=== PATIENT | male | born 1945 | race Caucasian/White ===

== ENCOUNTER 2018-12-14 12:20 | Inpatient (IN) ==
[2018-12-14] MEDS ORDERED: NS 1,000 ML IV ONE (12:49)
[2018-12-14] MEDS ORDERED: CORDARONE IV ONE (12:49)
[2018-12-14] MEDS ORDERED: ASPIRIN PO ONE (12:55)
[2018-12-14] MEDS ORDERED: ADENOCARD IV ONE ×2 (12:57→13:01)
[2018-12-14] MEDS ORDERED: ADENOCARD ONE ×2 (12:57→13:03)
[2018-12-14] MEDS ORDERED: LOPRESSOR IV ONE ×2 (13:02→13:07)
[2018-12-14] MEDS ORDERED: LOPRESSOR ONE (13:03)
[2018-12-14] MEDS ORDERED: CORDARONE 360 MG/D5W 360 MG/200 ML IV.SOLN IV ONE ×2 (13:06→13:09)
[2018-12-14 13:19] LABS: INR 1.1; PROTIME 14.4 Seconds (11.0-16.0)
[2018-12-14 13:20] LABS: PTT 33.5 Seconds (22.3-41.8)
[2018-12-14 13:29] LABS: BASO% 0.7 % (0.0-0.8); EOS# 0.21 X1000 (0.0-0.7); EOS% 1.4 % (0.0-10.0); HEMATOCRIT 45.1 % (42.0-52.0); HEMOGLOBIN 15.4 g/dL (14.0-18.0); MCH 30.7 PG (27-31); MCHC 34.1 g/dL (33-37); MCV 89.8 FL (81-99); MONO# 1.35 X1000 (0.11-0.59); MONO% 9.3 % (1.7-9.3); MPV 8.9 FL (7.4-10.4); NEUT# 7.82 X1000 (1.4-6.5); NEUT% 53.6 % (42.2-75.2); PLT 363 X1000 (130-400); RBC 5.02 XMIL (4.7-6.1); RDW 13.2 % (11.5-14.5); WBC 14.58 X1000 (4.8-10.8)
--- NOTE | 2018-12-14 13:36 | Diag Imaging Result Doc PS360 ---
EXAM: CHEST-PORTABLE HISTORY: cp TECHNIQUE: Portable chest COMPARISON: 05/10/2016 FINDINGS: The lungs are well expanded. The heart is not enlarged. The vessels are not distended. There is scarring in the lower lungs, right greater than left. There are no infiltrates. No effusion identified. Right-sided pleural thickening. IMPRESSION: Basilar scarring Electronically signed by Antonio Lo 12/14/2018 1:33 PM
[2018-12-14 13:50] LABS: AGAP 14; ALB/GLOB RATIO 1.4; ALBUMIN 3.8 g/dL (3.5-5.0); ALKALINE PHOSPHATASE 79 U/L (32-122); BUN 17 mg/dL (8-22); CALCIUM 9.1 mg/dL (8.8-10.2); CHLORIDE 99 mmol/L (98-107); CK PROFILE 37 U/L (24-204); COSMO 279; CREATININE 1.1 mg/dL (0.7-1.2); ESTIMATED GFR > 60; GLUCOSE 122 mg/dL (70-104); GOT 16 U/L (10-34); GPT 19 U/L (10-44); POTASSIUM 4.5 mmol/L (3.5-5.1); SODIUM 138 mmol/L (136-145); TCO2 25 mmol/L (25-35); TOTAL BILIRUBIN 0.53 mg/dL (0.20-1.00); TOTAL PROTEIN 6.6 g/dL (6.3-8.3)
--- NOTE | 2018-12-14 14:05 | EKG Report ---
Test Performed on : 12/14/2018 12:43:51 PM Test Reason : cp Blood Pressure : / mmHG Vent. Rate : 171 BPM Atrial Rate : 174 BPM P-R Int : 000 ms QRS Dur : 122 ms QT Int : 306 ms P-R-T Axes : 000 -12 149 degrees QTc Int : 516 ms Wide QRS tachycardia. Left bundle branch block Abnormal ECG When compared with ECG of 11-AUG-2015 07:12, Wide QRS tachycardia. has replaced Sinus rhythm. Vent. rate has increased BY 109 BPM Unconfirmed Result
--- NOTE | 2018-12-14 14:13 | EKG Report ---
Test Performed on : 12/14/2018 12:56:18 PM Test Reason : cp Blood Pressure : / mmHG Vent. Rate : 169 BPM Atrial Rate : 163 BPM P-R Int : 000 ms QRS Dur : 132 ms QT Int : 310 ms P-R-T Axes : 000 -15 141 degrees QTc Int : 519 ms Wide QRS tachycardia. Left bundle branch block Abnormal ECG When compared with ECG of 14-DEC-2018 12:43, (Unconfirmed) No significant change was found Unconfirmed Result
--- NOTE | 2018-12-14 14:16 | EKG Report ---
Test Performed on : 12/14/2018 12:59:53 PM Test Reason : cp Blood Pressure : / mmHG Vent. Rate : 080 BPM Atrial Rate : 080 BPM P-R Int : 158 ms QRS Dur : 136 ms QT Int : 388 ms P-R-T Axes : 065 -09 146 degrees QTc Int : 447 ms Normal sinus rhythm. Left bundle branch block Abnormal ECG When compared with ECG of 14-DEC-2018 12:59, (Unconfirmed) No significant change was found Unconfirmed Result
[2018-12-14 14:18] LABS: T4 6.53 ug/dL (4.60-12.00); TSH 4.56 uIUmL (0.27-4.20)
--- NOTE | 2018-12-14 14:19 | EKG Report ---
Test Performed on : 12/14/2018 1:00:35 PM Test Reason : cp Blood Pressure : / mmHG Vent. Rate : 174 BPM Atrial Rate : 174 BPM P-R Int : 112 ms QRS Dur : 112 ms QT Int : 246 ms P-R-T Axes : 052 -25 183 degrees QTc Int : 418 ms Sinus tachycardia. with premature ventricular complexes. or fusion complexes Anterior infarct , age undetermined Marked ST abnormality, possible inferolateral subendocardial injury Abnormal ECG When compared with ECG of 14-DEC-2018 12:59, (Unconfirmed) fusion complexes are now present premature ventricular complexes. are now present Vent. rate has increased BY 94 BPM Left bundle branch block is no longer present Anterior infarct is now present Unconfirmed Result
--- NOTE | 2018-12-14 14:22 | EKG Report ---
Test Performed on : 12/14/2018 1:03:29 PM Test Reason : cp Blood Pressure : / mmHG Vent. Rate : 169 BPM Atrial Rate : 170 BPM P-R Int : 000 ms QRS Dur : 116 ms QT Int : 248 ms P-R-T Axes : 000 -17 175 degrees QTc Int : 415 ms Supraventricular tachycardia. Anteroseptal infarct (cited on or before 14-DEC-2018) Marked ST abnormality, possible inferolateral subendocardial injury Abnormal ECG When compared with ECG of 14-DEC-2018 13:00, (Unconfirmed) fusion complexes are no longer present premature ventricular complexes. are no longer present Serial changes of Anteroseptal infarct present Unconfirmed Result
--- NOTE | 2018-12-14 14:24 | EKG Report ---
Test Performed on : 12/14/2018 1:04:31 PM Test Reason : cp Blood Pressure : / mmHG Vent. Rate : 081 BPM Atrial Rate : 081 BPM P-R Int : 164 ms QRS Dur : 136 ms QT Int : 390 ms P-R-T Axes : 068 -10 136 degrees QTc Int : 453 ms Sinus rhythm. with fusion complexes Left bundle branch block Abnormal ECG When compared with ECG of 14-DEC-2018 13:03, (Unconfirmed) fusion complexes are now present Vent. rate has decreased BY 88 BPM Left bundle branch block is now present Criteria for Anteroseptal infarct are no longer present Unconfirmed Result
--- NOTE | 2018-12-14 14:27 | EKG Report ---
Test Performed on : 12/14/2018 1:06:32 PM Test Reason : cp Blood Pressure : / mmHG Vent. Rate : 071 BPM Atrial Rate : 071 BPM P-R Int : 172 ms QRS Dur : 134 ms QT Int : 368 ms P-R-T Axes : 058 -22 117 degrees QTc Int : 399 ms Sinus rhythm. with premature supraventricular complexes. Left bundle branch block Abnormal ECG When compared with ECG of 14-DEC-2018 13:04, (Unconfirmed) fusion complexes are no longer present premature supraventricular complexes. are now present QT has shortened Unconfirmed Result
--- NOTE | 2018-12-14 14:29 | EKG Report ---
Test Performed on : 12/14/2018 1:07:30 PM Test Reason : cp Blood Pressure : / mmHG Vent. Rate : 068 BPM Atrial Rate : 068 BPM P-R Int : 172 ms QRS Dur : 138 ms QT Int : 392 ms P-R-T Axes : 049 -20 110 degrees QTc Int : 416 ms Normal sinus rhythm. Left bundle branch block Abnormal ECG When compared with ECG of 14-DEC-2018 13:06, (Unconfirmed) premature supraventricular complexes. are no longer present Unconfirmed Result
--- NOTE | 2018-12-14 14:31 | EKG Report ---
Test Performed on : 12/14/2018 1:08:35 PM Test Reason : cp Blood Pressure : / mmHG Vent. Rate : 067 BPM Atrial Rate : 067 BPM P-R Int : 160 ms QRS Dur : 140 ms QT Int : 412 ms P-R-T Axes : 038 -20 126 degrees QTc Int : 435 ms Normal sinus rhythm. Left bundle branch block Abnormal ECG When compared with ECG of 14-DEC-2018 13:07, (Unconfirmed) No significant change was found Unconfirmed Result
--- NOTE | 2018-12-14 14:35 | EKG Report ---
Test Performed on : 12/14/2018 1:09:36 PM Test Reason : cp Blood Pressure : / mmHG Vent. Rate : 062 BPM Atrial Rate : 062 BPM P-R Int : 154 ms QRS Dur : 146 ms QT Int : 436 ms P-R-T Axes : 050 -22 125 degrees QTc Int : 442 ms Normal sinus rhythm. Left bundle branch block Abnormal ECG When compared with ECG of 14-DEC-2018 13:08, (Unconfirmed) No significant change was found Unconfirmed Result
[2018-12-14] MEDS ORDERED: LOPRESSOR IV PRN (16:01)
[2018-12-14] MEDS ORDERED: ZOFRAN IV PRN (16:38)
[2018-12-14] MEDS ORDERED: TYLENOL PO PRN (16:38)
--- NOTE | 2018-12-14 18:16 | EKG Report ---
Test Performed on : 12/14/2018 2:58:51 PM Test Reason : repeat Blood Pressure : / mmHG Vent. Rate : 110 BPM Atrial Rate : 101 BPM P-R Int : 000 ms QRS Dur : 146 ms QT Int : 408 ms P-R-T Axes : 000 -08 127 degrees QTc Int : 552 ms Wide QRS rhythm. Left bundle branch block Abnormal ECG When compared with ECG of 14-DEC-2018 13:09, (Unconfirmed) Wide QRS rhythm. has replaced Sinus rhythm. Vent. rate has increased BY 48 BPM Unconfirmed Result
[2018-12-14] MEDS ORDERED: CORDARONE 540 MG in D5W 289.2 ML IV ONE ×2 (19:06→19:10)
--- NOTE | 2018-12-14 19:08 | PROVIDER DOCUMENTATION ---
This chart was entered by Maria Luisa Castillo Scribe, acting as scribe for Romero Mccarthy MD. HPI-Cardiac General - General Chief Complaint: Palpitations Stated Complaint: HIGH PULSE,CONFUSED Time Seen by Provider: 12/14/18 13:00 Source: patient, family Allergies/Adverse Reactions: Patient Allergies Allergy/AdvReac Type Severity Reaction Status Date / Time benzalkonium chloride Allergy Severe WATERY EYES Verified 04/19/17 09:08 [From Travatan] brimonidine tartrate * Allergy Severe WATERY EYES Verified 04/19/17 09:08 [From Alphagan P] dorzolamide HCl * Allergy Severe WATERY EYES Verified 04/19/17 09:08 [From Cosopt] adhesive tape Allergy Mild RASH Verified 04/19/17 09:08 itraconazole [From Sporanox] Allergy Mild RASH Verified 04/19/17 09:08 warfarin sodium * Allergy Unknown Verified 04/19/17 09:08 [From Coumadin] timolol maleate * AdvReac Severe WATERY EYES Verified 04/19/17 09:08 [From Cosopt] travoprost [From Travatan] AdvReac Severe WATERY EYES Verified 04/19/17 09:08 Home Medications: Home Medication List Medication Instructions Recorded Confirmed Last Taken Type Bimatoprost [Lumigan] 1 drop BOTH EYES HS 02/16/12 10/14/18 10/13/18 History Carboxymethylcellulose Sodium 1 each OP 2-4XDAY PRN PRN 02/16/12 10/14/18 10/14/18 History [Thera Tears] Multivitamin [Essential One Daily] 1 each PO DAILY 02/16/12 10/14/18 10/14/18 History [place]-3 Fatty Acids/Fish Oil [Fish 1 each PO DAILY 02/16/12 10/14/18 10/14/18 History Oil 1,000 mg Capsule] Timolol Maleate [Timoptic] 1 drop BOTH EYES DAILY 02/16/12 10/14/18 10/14/18 History Mv-Min/FA/Vit K/Lycop/Lut/Zeax 1 each PO HS 08/09/15 10/14/18 10/13/18 History [Ocuvite Eye Plus Multi Tablet] Pantoprazole [Protonix] 40 mg PO DAILY@0700 03/10/14/18 10/14/18 History Mesalamine E.r. [Pentasa] 500 mg PO BID #0 capsule 08/11/15 10/14/18 10/14/18 Rx - History of Present Illness-Cardiac Nature of Presenting Problem: 73 yom c/o cardiac palpitations, dizziness, confusion and sob starting at 1130. pt has no hx of cardiac issues. pt had recent eye sx 10-28-18 and 11-11-18. pt ambulates w/cane. pt had hr of 175, 158 converted w/adenosine, went to 79 and in few seconds went up to 172 at 1300. converted second time w/adenosine and metoprolol and pt went into svt again was converted 3rd time is in stable rhythm currently. Review of Systems - Adult - REVIEW OF SYSTEMS - ADULT Constitutional: reports: see HPI, other (confusion). denies: fever, fatique, night sweats Eyes: reports: no symptoms reported Ears, Nose, Mouth & Throat: reports: no symptoms reported Cardiovascular: reports: see HPI, irregular heart rate, palpitations. denies: orthopnea, poor circulation, syncope Respiratory: reports: see HPI, shortness of breath. denies: cough, hemoptysis, pleurisy Gastrointestinal: reports: no symptoms reported Genitourinary: reports: no symptoms reported Musculoskeletal: reports: no symptoms reported Integumentary: reports: no symptoms reported Neurological: reports: see HPI, dizziness/vertigo. denies: headache/migraines, loss of balance, slurred speech Psychiatric: reports: no symptoms reported Endocrine: reports: no symptoms reported Hematologic/Lymphatic: reports: no symptoms reported Allergic/Immunologic: reports: no symptoms reported All Other Systems: Reviewed and Negative Past History - Adult - PAST MEDICAL HISTORY-ADULT Review of Records: reports: Old Records Reviewed, Nursing Assessment Review, Medications Reviewed, Social history reviewed & non-contributory. Major Childhood Illnesses: reports: denies history Cardiovascular: reports: HTN Respiratory: reports: sleep apnea Gastrointestinal: reports: Crohn's Obstetrical/Gynecological: reports: denies history Genitourinary: reports: prostate cancer Musculoskeletal: reports: denies history Neurological: reports: denies history Endocrine/Immune: reports: denies history Other Conditions: reports: cataract/glaucoma - PRIOR SURGERIES/PROCEDURES Surgical/Procedure History: reports: other (prostate, tracheostomy) - IMMUNIZATION STATUS Childhood Immunizations: See Nurse Assessment Flu Vaccine: See Nurse Assessment - FAMILY HISTORY Family History: reviewed, not pertinent - SOCIAL HISTORY Smoking: cigarettes, less than 1 pack/day Provider spent 3-5 mins advising pt. on dangers of tobacco.: Discussed manners to quit use, and f/u contacts for add'l counseling. Substance Use: none/never Physical Exam-General - PHYSICAL EXAM-ADULT Initial Vital Signs Reviewed: Yes - CONSTITUTIONAL General Appearance: alert, no apparent distress. negative: lethargic, slow to respond, obtunded - EYES Eyes: PERRL/EOMI, pink conjunctivae - HEAD, EARS, NOSE, MOUTH & THROAT HENMT: normocephalic/atraumatic, moist mucous membranes, normal ENT inspection - NECK Neck: non-tender, full range of motion, supple, normal inspection - RESPIRATORY Respiratory: chest non-tender, lungs clear, normal breath sounds, no pleuratic chest pain, no respiratory distress, no accessory muscle use. negative: respiratory distress, decreased breath sounds, accessory muscle use - CARDIOVASCULAR Cardiovascular: normal peripheral pulses, no edema, no gallop, no JVD, no murmur , tachycardia. negative: regular rate, rhythm, JVD, bradycardia - GASTROINTESTINAL (ABDOMEN) Abdominal Exam: normal bowel sounds, non tender, soft - LYMPHATIC Lymphatic: no adenopathy - MUSCULOSKELETAL Back Exam: normal inspection, no CVA tenderness, no vertebral tenderness Extremity: normal range of motion, non-tender, normal inspection. negative: normal gait (amb w/cane) Peripheral Pulses: radial (R): 2+, radial (L): 2+ - SKIN Integumentary: normal color, normal turgor, warm/dry - NEUROLOGIC Neurologic: grossly normal, no motor/sensory deficits - PSYCHIATRIC Psych/Mental Status: normal mood/affect, normal thought content, normal thought process, oriented x 3 Progress - PLAN OF CARE/RESULTS Result Diagrams: 12/14/18 12:48 12/14/18 12:48 - REASSESSMENT Reassessment #1 Time Reassessed: 16:24 Status: other (Dr. boucher called to discuss pt w/Dr. Mccarthy.) - EKG 1 Time of EKG reading by physician:: 12:43 EKG Read and Signed by:: Romero Mccarthy EKG Interpretation (*Must complete 3 of following elements*): Abnormal Rate: 171 Rhythm: wide qrs tachycardia QRS: LBB ST Wave: normal 2 Time of EKG reading by physician:: 12:59 EKG Read and Signed by:: Romero Mccarthy EKG Interpretation (*Must complete 3 of following elements*): Abnormal Rate: 80 Rhythm: NSR QRS: LBB [place] Interval: normal ST Wave: normal 3 Time of EKG reading by physician:: 13:00 EKG Read and Signed by:: Romero Mccarthy EKG Interpretation (*Must complete 3 of following elements*): Abnormal Rate: 174 Rhythm: ST w/ premature ventricular complexes or fusion complexe [place]: normal ST Wave: normal, non-specific ST changes (marked st abnormality, poss inferol ateral subendocardial injury) Comments: anterior infarct, age undetermined 4 Time of EKG reading by physician:: 14:59 EKG Read and Signed by:: Romero Mccarthy EKG Interpretation (*Must complete 3 of following elements*): Abnormal Rate: 110 Rhythm: wide qrs rhythm [place]: normal QRS: LBB [place] Interval: normal ST Wave: normal Comments: - XRAY 1 XRAY: Bilateral XRAY Study: Chest Impression: Abnormal, See EMR Report ( EXAM: CHEST-PORTABLE HISTORY: cp TECHNIQUE: Portable chest COMPARISON: 05/10/2016 FINDINGS: The lungs are well expanded. The heart is not enlarged. The vessels are not distended. There is scarring in the lower lungs, right greater than left. There are no infiltrates. No effusion identified. Right-sided pleural thickening. IMPRESSION: Basilar scarring Electronically signed by Antonio Lo 12/14/2018 1:33 PM) Comparison with other Films: changes noted - CONSULTS/PCP/HOSPITALIST Notification #1 *Consult/PCP/Hospitalist*: Dr. BOUCHER/pt PCP Time Discussed: 14:56 Consult Disposition: other (will determine whether we will keep pt here or send to [facility]) #2 Consult: Dr. Roberts Time Discussed: 14:59 Consult Disposition: Will see in ED #3 Consult: Dr. Roberts Time Discussed: 15:39 Consult Disposition: Admit (Dr. Roberts saw pt, pt naseem be admitted, waiting to hear from Dr. Boucher.) Departure - Departure Date of Disposition Decision: 12/14/18 Time of Disposition Decision: 17:00 DIAGNOSIS: Wide-complex tachycardia Disposition: ADMITTED INPATIENT 09 Certified Medical Emergency: Emergent Condition: Stable - Critical Care Note This patient required my direct & personal management of CC.: Yes Total Time (mins): 35 Critical Care Statement: This patient required my direct personal management to treat or rule out processes, the absence of which, could potentiallly result in sudden, clinically significant life or limb threatening deterioration. Attestation - Physician/ [place] Attestation Patient care was provided by Advanced Practice Provider:: No The physician spent face to face time with patient:: Yes Advanced Practice Provider documentation review:: Supervising physician onsite and consulted in the evaluation and care of this patient. The physician did have a face to face encounter with the patient. This chart was documented by the indicated scribe, (Maria Luisa Castillo Scribe) and accurately reflects the services I performed and decisions made by me, Romero Mccarthy MD, as attested by the provider's signature.
--- NOTE | 2018-12-14 20:11 | HISTORY AND PHYSICAL ---
CHIEF COMPLAINT: Confusion. HISTORY OF PRESENT ILLNESS: This 73-year-old white male presented to the emergency room this morning with acute confusion. His brought him up here. He was markedly tachycardic with heart rates in the 170s. Initial EKG showed wide complex tachycardia. The patient has a baseline left bundle branch block and this was treated as a supraventricular tachycardia with a 6 mg dose of adenosine and then later a 12 mg dose of adenosine. In both cases, he converted to sinus rhythm with left bundle branch block briefly, but then went back to the rapid heart rate. The emergency room physician wanted to admit the patient. I wanted to have Cardiology look at him in the event that he might need other invasive intervention. Dr. Nathan Roberts evaluated the patient and felt that it was safe for him to remain at [facility] getting antiarrhythmic treatment. The patient recently underwent trabeculectomy of the left eye for severe glaucoma. The patient had the unfortunate complication of a hemorrhage behind his retina which detached it. He is having multiple surgeries to correct that, but has lost a significant amount of vision in that eye. His other eye is not faring much better due to the glaucoma. It is also noted that approximately 3 years ago at the end of 2014, the patient had a cardiology evaluation including a left heart catheterization, which only showed a single vessel that had a 20% lesion in it. No significant heart disease was seen at that time. PAST MEDICAL HISTORY: 1. Mitral valve prolapse. 2. History of prostate cancer. 3. Long history of tobacco use. 4. Diverticulosis. 5. Obstructive sleep apnea. 6. COPD. 7. Crohn colitis. 8. Left bundle branch block. 9. Glaucoma. 10. Low HDL cholesterol. ALLERGIES: Sulfa drugs. PAST SURGICAL HISTORY: Tonsillectomy 1951, right foot fracture 1966, bilateral keratotomy in 1982, laser throat surgery 1994, sleep apnea surgery 1995. This was the maxillary procedure, not a UP3, detached left retina 1995, cataract surgery in 1997, detached right retina in 1997, cataract surgery in 1998, prostatectomy in 1999, left shoulder surgery 2002, penile implant 2006, trabeculectomy left eye. SOCIAL HISTORY: The patient is and lives with his . He does not use alcohol. Is previous service. 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 The patient is a former daily smoker who quit a couple years ago. REVIEW OF SYSTEMS: Patient denies any fever or chills. He has not had any nausea or vomiting. He denied any chest pain with any of this. He did not have any significant shortness of breath. He mainly manifests his self as confusion and he got very fearful after realizing that his rate was so high. He has not had any swelling in his lower extremities or pain in the lower extremities. He has no genitourinary dysfunction. Bowel function has been normal. PHYSICAL EXAMINATION: GENERAL: He is a well-developed, well-nourished white male in no acute distress. He is alert, oriented, conversive and appropriate. NECK: Unremarkable. No bruits present with thyromegaly. LUNGS: Clear to auscultation bilaterally. CARDIOVASCULAR: Regular at approximately 110 beats per minute. It appears to be in a bundle- branch block pattern but is unclear if P waves are present. ABDOMEN: Bowel sounds are present. EXTREMITIES: Trace peripheral edema in the lower extremities. NEURO: The patient is neurologically intact with the exception of his eyesight. He generally sits or lies with his eyes closed. LABORATORY: White cell count is 14.5, hemoglobin 15.4, BUN 17, creatinine 1.1. Liver function tests are normal. ProBNP is 1965. TSH slightly elevated at 4.56 but T4 level is within normal range. EKG readings were not available at the time that I was in the emergency room. I did review the report and spoke with Dr. Mccarthy as they were trying to get him to convert. Dr. Mccarthy thought that he saw retrograde conducted P waves and felt like he was in a sinus tachycardia with those or a junctional tachycardia with left bundle branch block and retrograde P waves. I think other alternatives are paroxysmal supraventricular tachycardia with left bundle branch block or atrial flutter with 2 to 1 conduction. ASSESSMENT AND PLAN: The patient be admitted to [facility] ICU. Dr. Nathan Roberts will be following. Dr. Roberts has written for amiodarone loading dose and for a drip which we will continue. Will recheck lab work in the morning. There was no significant laboratory abnormalities to account for his dysrhythmia. If we are unable to really harness this rhythm then transfer to [facility] for consideration of EP study may be in the future. cc: Rory Berry MD
--- NOTE | 2018-12-14 21:18 | CARDIOLOGY CONSULTATION ---
DATE: 12/14/2018 CHIEF COMPLAINT ON PRESENTATION: Altered mental status. Weakness. HISTORY OF PRESENT ILLNESS: Mr. Nguyễn is a 73-year-old gentleman with nonobstructive coronary disease. He presented with altered mental status. He felt well this morning when he fell asleep. When he woke up he felt very confused, altered, weak. His said she checked his pulse and it was elevated. He presented to the ER and was found to be in a wide complex tachycardia. He is noted to have a baseline left bundle branch block. His QRS complex was no different than his previous EKGs have noted to be. The patient was administered adenosine as well as metoprolol, ultimately placed on amiodarone infusion. He converted with adenosine as well as periodically with metoprolol but would rapidly reconvert. On presentation into the room he was in a wide complex regular mild tachycardia in the 110s. Atrial activity was not clearly evident. Brief carotid sinus massage converted him into a sinus rhythm with a left bundle. PAST MEDICAL HISTORY: 1. Significant for coronary artery disease. He had a cardiac catheterization in July 2015. This demonstrated 10 to 20 percent disease within the mid left main. The LAD had stable calcified diffuse 20 to 40 percent disease throughout the midvessel. The ramus was large, angiographically normal. The circumflex was angiographically normal. The right coronary had ectatic calcified 30 to 40% disease with in the mid right body. The LV ejection fraction on that study was 65%. 2. Prostate cancer. 3. Diverticulosis. 4. Obstructive sleep apnea. 5. Crohn colitis followed by Dr. Schmitz on Remicade. 6. Left bundle branch block. 7. Hypertension. 8. Remote history of histoplasmosis. SOCIAL HISTORY: He is . His is present at the bedside. FAMILY HISTORY: Significant for hypertension. REVIEW OF SYSTEMS: A 10 system review of systems is negative except for those mentioned in HPI. PHYSICAL: Currently he is afebrile. His heart rate when he is in sinus is in the 50s to 60s. His blood pressure is 120/77.General: He is in no acute distress. He is pleasant. HEENT: Oropharynx is moist. Poor dentition. Eye examination shows pink conjunctivae. White sclerae. Neck: Shows no obvious thyromegaly or thyroid tenderness. Cardiovascular: He sounds to be in a regular rate and rhythm. He is relatively bradycardic. He has no murmurs. He has no lower extremity edema. Chest: Clear bilaterally. He has no increased work of breathing. Abdomen: Soft, nontender, nondistended. He has no obvious organomegaly. Skin: Warm and dry throughout without any rashes. Neurological: He is moving all extremities well. He has no lateralizing deficits. PERTINENT DATA: His chest x-ray shows a right-sided pleural thickening with basilar scarring. His initial EKG reviewed by me demonstrates a wide complex tachycardia with a left bundle pattern. This is a similar left bundle pattern to his baseline EKG. On some leads he appears to have possible retrograde P-waves. He has a subsequent EKG showing similar findings and subsequent EKGs after administration of adenosine or beta blockers demonstrate a sinus rhythm with a baseline left bundle. His lab data demonstrates a white count of 14.6, his hematocrit is 45, his platelet count is 363,000. His sodium is 138, his potassium is 4.5, his BUN is 17, creatinine is 1.1, his proBNP is 1965, TSH 4.56 with a T4 6.53. Cardiac enzymes are negative. ASSESSMENT: Mr. Nguyễn is a 73-year-old gentleman with a history of hypertension, mild coronary disease who presents in supraventricular tachycardia. PLAN: I agree with continuing on the amiodarone infusion. Likely plan will be to check an echocardiogram in the morning. Consideration for referral to EP in the nursing home for a radiofrequency ablation. cc: MD Rory Page MD
[2018-12-15 06:40] LABS: BASO# 0.06 X1000 (0.0-0.2); BASO% 0.4 % (0.0-0.8); EOS# 0.19 X1000 (0.0-0.7); EOS% 1.3 % (0.0-10.0); HEMATOCRIT 41.8 % (42.0-52.0); HEMOGLOBIN 14.2 g/dL (14.0-18.0); LYMPH# 3.43 X1000 (1.2-3.4); LYMPH% 23.8 % (20.5-51.1); MCH 30.7 PG (27-31); MCV 90.5 FL (81-99); MONO# 1.29 X1000 (0.11-0.59); MPV 9.2 FL (7.4-10.4); NEUT# 9.43 X1000 (1.4-6.5); NEUT% 65.5 % (42.2-75.2); PLT 268 X1000 (130-400); RBC 4.62 XMIL (4.7-6.1)
[2018-12-15 06:51] LABS: AGAP 10; BUN 12 mg/dL (8-22); CALCIUM 8.2 mg/dL (8.8-10.2); CHLORIDE 104 mmol/L (98-107); CK PROFILE 37 U/L (24-204); COSMO 279; CREATININE 0.9 mg/dL (0.7-1.2); ESTIMATED GFR > 60; GLUCOSE 91 mg/dL (70-104); POTASSIUM 4.2 mmol/L (3.5-5.1); SODIUM 140 mmol/L (136-145); TCO2 26 mmol/L (25-35)
[2018-12-15] MEDS ORDERED: ROCEPHIN 1 GM in NS 50 ML IV SCH (11:15)
--- NOTE | 2018-12-15 11:41 | PROGRESS NOTE ---
DATE: 12/15/2018 SUBJECTIVE: The patient has no complaints, other than the discomfort of being in bed. He is unaware of shifts in his heart rhythm, and he is not having any palpitations or confusion. OBJECTIVE: Vital Signs: Afebrile at 98.5, pulse rate is variable, respirations are 18, last blood pressure was 95/55, saturating 97%. General: The patient is alert, oriented, conversive, and appropriate. Lungs: Clear. Cardiovascular: At the time of my examination was variable from a regular rhythm at approximately 108 beats per minute to sometimes a regular rhythm at approximately 55 beats per minute. LABORATORY DATA: White cell count 14.4, hematocrit 42. Serum electrolytes are normal. ASSESSMENT AND PLAN: 1. In viewing the patient's telemetry, as I was standing there, he went from a regular rhythm at approximately 108 beats per minute, which appeared to be junctional or some forme fruste there of, and he would spontaneously begun to go into a sinus rhythm with left bundle at approximately 55 beats per minute. According to the nurse, this has been going on all night and all morning regardless of the patient's position. He is unaware of any of these shifts. I am not sure that this represents progress in regard to the effect of the amiodarone, but will leave that decision making to Cardiology. 2. The patient's nurse pointed out that his right arm IV had infiltrated where he was getting the amiodarone. It was quite red and warm, and they are wrapping it in cool wraps. I think I may err on the side of caution given his relatively immunocompromised state, and give him some antibiotics. 3. Ulcerative colitis. Aware. 4. The patient's glaucoma and eye difficulty will be handled with his home medications administered by his . cc: Rory Berry MD
[2018-12-15] MEDS: DOXYCYCLINE PO SCH ×2 (12:04→20:42)
[2018-12-15] MEDS ORDERED: CORDARONE 360 MG/D5W 360 MG/200 ML IV.SOLN IV ONE (12:40)
[2018-12-15] MEDS ORDERED: CORDARONE 360 MG/D5W 360 MG/200 ML IV.SOLN IV SCH (12:50)
[2018-12-15] MEDS: LOPRESSOR PO SCH ×2 (13:14→20:42)
--- NOTE | 2018-12-15 13:39 | CARDIOLOGY PROGRESS NOTE ---
DATE: 12/15/2018 SUBJECTIVE: Mr. Nguyễn reports he feels well today. PHYSICAL EXAMINATION: Vital signs: He is afebrile. His heart rates fluctuate between 50s to 60s up into the 110s to 120s. Blood pressure 122/48. General: He is in no acute distress. Cardiovascular: He is in a regular rate and rhythm. During the exam he readily fluctuates between the 50s, 60s and 110s to 130s. He is asymptomatic with this. He has no lower extremity edema. Chest: Clear bilaterally. He has no increased work of breathing. Abdomen: Soft, nontender. PERTINENT DATA: His sodium is 140, potassium 4.2, BUN 12, creatinine 0.9. TSH is 4.56 with a normal T4. Cardiac enzymes negative. ASSESSMENT: Mr. Nguyễn is a 73-year-old gentleman who seems to be stuck in a reentrant tachycardia. PLAN: He readily converse with vagal maneuvers but reconverts despite amio infusion. We will continue him on amiodarone, try to add in some low-dose beta blockers even though his sinus rhythm is relatively slow. If we end up having persistent issues we may need to refer him over to [facility] for consideration for ablation. cc: MD Rory Page MD MTDD
--- NOTE | 2018-12-15 15:49 | ECHO REPORT ---
ORDER DATE: 12/15/2018 INDICATION: SVT. FINDINGS: 1. The right atrium appears mildly enlarged at 4.9 cm. 2. Mild tricuspid regurgitation. RV systolic pressure of 30. 3. Normal RV size and systolic function. 4. No significant pulmonic insufficiency. 5. Normal left atrial size with a dimension of 3.1 cm. 6. No mitral valve prolapse. Trace mitral regurgitation. 7. Normal LV size, end-diastolic dimension of 4.5. Suggestion of mild left ventricular hypertrophy with a posterior and interventricular septal wall thickness of 1.3 and 1.4 cm respectively. Reduction in LV systolic function with an estimated EF of 40%. Optison contrast was used. This was a difficult study with the patient's heart rate fluctuating between the 50s and the 100s. 8. Aortic valve opens well. No stenosis. Mild to moderate aortic insufficiency. 9. Aorta appears normal in visualized segments. 10. No pericardial effusion seen. cc: MD Rory Page MD
[2018-12-15] MEDS: CORDARONE PO SCH (20:42)
[2018-12-16] MEDS: LOPRESSOR PO SCH ×4 (02:22→20:10)
--- NOTE | 2018-12-16 07:50 | EKG Report ---
Test Performed on : 12/16/2018 06:54:35 AM Test Reason : svt Blood Pressure : / mmHG Vent. Rate : 058 BPM Atrial Rate : 058 BPM P-R Int : 138 ms QRS Dur : 160 ms QT Int : 528 ms P-R-T Axes : 041 -23 174 degrees QTc Int : 518 ms Sinus bradycardia. Left bundle branch block Abnormal ECG When compared with ECG of 14-DEC-2018 14:58, (Unconfirmed) Sinus rhythm. has replaced Wide QRS rhythm. Vent. rate has decreased BY 52 BPM Confirmed by Marilu Whitaker MD ([id number]) on 12/16/2018 4:11:18 PM
[2018-12-16] MEDS: ASACOL HD PO SCH ×3 (08:28→20:11)
[2018-12-16] MEDS: CORDARONE PO SCH ×2 (08:28→20:10)
[2018-12-16] MEDS: ZANTAC PO SCH (08:28)
[2018-12-16] MEDS: MIRALAX PO SCH (08:29)
[2018-12-16] MEDS: DOXYCYCLINE PO SCH ×2 (08:29→20:10)
--- NOTE | 2018-12-16 08:56 | CARDIOLOGY PROGRESS NOTE ---
DATE: 12/16/2018 SUBJECTIVE: Mr. Walker reports he is doing well. He has no complaints. He seems to have stabilized rhythm boykin in the last 12 hours. PHYSICAL EXAMINATION: Vital signs: The patient is afebrile. Heart rate 64, blood pressure 107/58. General: He is in no acute distress. Cardiovascular: He sounds to be in a regular rate and rhythm. His current telemetry shows sinus. He has no lower extremity edema. Chest: Clear bilaterally. He has no increased work of breathing. Abdomen: Soft. PERTINENT DATA: White count 14, hematocrit 41, platelet count 268,000. His sodium is 140, potassium 4.2, BUN is 12, creatinine 0.9. Cardiac enzymes are negative. Those were labs from yesterday. His EKG today shows sinus rhythm, left bundle which is his stable QRS morphology. His echocardiogram yesterday demonstrated an estimated EF of 40%. Mild LVH. He had widely fluctuating heart rates during that study. ASSESSMENT: Mr. Nguyễn is a 73-year-old gentleman who presented in what appeared to be an AV shayna reentrant tachycardia. PLAN: He had very difficult to control rhythms when he came in. We ultimately placed him on oral amiodarone and oral beta blockers, and he has since, in the last 12 hours, stabilized in a sinus rhythm. Pending discussion with [facility] EP Service to discuss further management of this. Specifically whether this will be in inpatient or outpatient evaluation for an ablation. cc: MD Rory Page MD
--- NOTE | 2018-12-16 22:17 | PROGRESS NOTE ---
DATE: 12/16/2018 SUBJECTIVE: The patient was seen and examined in the morning. The dictation is not taking place till later. This morning the patient had seemed to stabilize into a slower rate sinus rhythm for approximately 3 to 4 hours at the time of my examination. Prior to that he had been flipping back and forth between accelerated junctional rhythm and sinus armando with left bundle branch block. The patient denied any home shortness of breath. He had no sensation of palpitations whatsoever. OBJECTIVE: Vital Signs: 97.4, 64, 17, 107/58, 97% saturated on 2 L nasal cannula. PHYSICAL EXAMINATION: The patient is alert, oriented, conversive and appropriate.Lungs: Clear to auscultation. There is a slight increased expiratory phase which is his baseline. Cardiovascular: Appears regular approximately 60 beats per minute at time of my examination. On the monitor it appears to be a sinus rhythm with visible P waves and a left bundle branch block pattern. LABORATORY: There was no lab work ordered today. ASSESSMENT AND PLAN: 1. The patient appears to be getting some stabilization in his rhythm pattern. I am sure at some point we will convert over to oral amiodarone with beta blockers added. The question that remains is whether this needs to be an inpatient or outpatient workup for this dysrhythmia and whether an ablation and/or EPS study can be undertaken on inpatient or outpatient basis. 2. Ulcerative colitis. Medications have been restarted. 3. The patient has received glaucoma medications. cc: Rory Berry MD MTDD
[2018-12-17] MEDS: LOPRESSOR PO SCH ×2 (01:41→08:19)
[2018-12-17] MEDS: ASACOL HD PO SCH ×2 (08:19→14:23)
[2018-12-17] MEDS: ZANTAC PO SCH (08:19)
[2018-12-17] MEDS: DOXYCYCLINE PO SCH (08:19)
[2018-12-17] MEDS: CORDARONE PO SCH (08:19)
[2018-12-17] MEDS: MIRALAX PO SCH (08:19)
[2018-12-17 11:56] VITALS: BP 119/46
[2018-12-17] MEDS ORDERED: LOPRESSOR PO SCH (13:15)
--- NOTE | 2018-12-17 14:38 | CARDIOLOGY PROGRESS NOTE ---
DATE: 12/17/2018 SUBJECTIVE: Mr. Nguyễn is doing well. He has no complaints. PHYSICAL EXAMINATION: The patient is afebrile. His heart rate is 51, blood pressure 119/46. He has maintained sinus rhythm overnight. General: No acute distress. Cardiovascular: He is in a regular rate and rhythm. He is in normal sinus rhythm based on telemetry right now. He has no lower extremity edema. Chest: Clear bilaterally. He has no increased work of breathing. Abdomen: Soft and nontender. PERTINENT DATA: He has no new laboratory or chemistry data from today. ASSESSMENT: Mr. Nguyễn is a 73-year-old gentleman who presents with a re-entrant supraventricular tachycardia, likely atrioventricular shayna. PLAN: I have talked to Dr. Rubi yesterday. The patient has maintained sinus rhythm on his beta-rivera dose as well as his current dose of amiodarone. I will get in touch with Dr. Rubi and range and outpatient office evaluation so he can be set up with hopefully a radiofrequency ablation in the near future. We will likely do a reassessment of his heart function in the near future after completion of the ablation. His echocardiogram was limited secondary to the patient's widely fluctuating heart rates during the study. From my standpoint, he would be reasonable to discharge home at this point. cc: MD Rory Page MD
--- NOTE | 2018-12-17 17:19 | DISCHARGE SUMMARY ---
ADMISSION DATE: 12/14/2018 DISCHARGE DATE: 12/17/2018 DISCHARGE DIAGNOSES: 1. Wide complex tachycardia. 2. Dysrhythmia, not otherwise specified. 3. Acute confusion. 4. Glaucoma. 5. Ulcerative colitis. HISTORY OF PRESENT ILLNESS: This 73-year-old white male presented with acute confusion on the morning of admission. At that time he was noted to be markedly tachycardic in the emergency room with a wide complex tachycardia. He has a baseline left bundle branch block. Two attempts were made to cardiovert using adenosine, which were only momentarily effective. Eventually, his heart rate settled down a bit and his mental sort of came back to baseline. Dr. Nathan Roberts was consulted. We decided to keep the patient in [place] and apply IV amiodarone to the problem. Over the course of the next couple of days, the patient eventually reverted back to sinus with left bundle branch block rhythm at a bradycardic rate, which is his baseline. Inquires were made as to transferring the patient for immediate EPS study but we decided to send the patient home on oral amnio and then have outpatient followup for EPS study and possible ablation. During the patient's hospitalization his ulcerative colitis medications and his glaucoma medications were used as they were previously. The patient is discharged home in good condition on the with the blessing of the cardiology team. cc: Rory Berry MD
[2018-12-18] MEDS ORDERED: CORDARONE PO SCH (09:00)
== END 2018-12-17 15:12 | disposition home or self-care (01) | DRG 309 ==
LOC: ED 12:20 → ICU 12:21 → 3S 12-16 09:36
PROVIDERS: ADMIT Internal Medicine; ATTEND Internal Medicine